=== PATIENT | female | born 1965 | race Caucasian/White ===

== ENCOUNTER 2018-05-09 13:19 | Emergency (ER) | payer OTHER ==
[~2018-05-09] VITALS: Ht 165.1 cm; Wt 74.4 kg
[2018-05-09 13:31] VITALS: Ht 165.1 cm; Wt 74.4 kg
[2018-05-09 16:41] LABS: BASOPHIL % 0.7 % (0-2); PLATELET COUNT 268 x10^3mcL (130-400); RED CELL DISTRIBUTION WIDTH 13.3 % (11.5-14.5)
[2018-05-09 16:57] LABS: CALCIUM 9.7 mg/dL (8.5-10.1); CARBON DIOXIDE 28.8 mmol/L (21-32); CHLORIDE SERUM 103 mmol/L (98-107); CREATININE SERUM 0.8 mg/dL (0.6-1.0); GFR1 > 60 mL/min; GLUCOSE SERUM 94 mg/dL (74-106); SODIUM SERUM 141 mmol/L (136-145)
[2018-05-09 17:01] LABS: ALBUMIN 3.8 g/dL (3.4-5.0); ALKALINE PHOSPHATASE 102 U/L (46-116); ALT/SGPT 30 U/L (14-59); AMYLASE 105 U/L (25-115); AST/SGOT 23 U/L (15-37); BILIRUBIN TOTAL 0.93 mg/dL (0.20-1.00); LIPASE 123 IU/L (73-393); TOTAL PROTEIN, SERUM 8.2 g/dL (6.4-8.2)
[2018-05-09 18:51] LABS: UA SPECIFIC GRAVITY <=1.005 (1.005-1.035); microscopic required? YES; urine erythrocyte 1+ (NEGATIVE)
[2018-05-09 19:25] VITALS: BP 113/65
== END 2018-05-09 19:25 | disposition home or self-care (01) ==
LOC: ED 13:19
PROVIDERS: Emergency Medicine
DX: R10.84 Generalized abdominal pain (principal); R14.0 Abdominal distension (gaseous); R11.0 Nausea
CPT/HCPCS: 36415; 83880

== ENCOUNTER 2019-10-01 17:05 | Emergency (ER) | payer OTHER ==
[~2019-10-01] VITALS: Ht 152.4 cm; Wt 74.8 kg
[2019-10-01 17:11] VITALS: Ht 152.4 cm; Wt 74.8 kg
[2019-10-01 17:43] LABS: BASOPHIL % 0.6 % (0-2); PLATELET COUNT 294 x10^3mcL (130-400); RED CELL DISTRIBUTION WIDTH 13.1 % (11.5-14.5)
[2019-10-01 17:54] LABS: CALCIUM 9.2 mg/dL (8.5-10.1); CHLORIDE SERUM 102 mmol/L (98-107); CREATININE SERUM 0.9 mg/dL (0.6-1.0); GFR1 > 60 mL/min; GLUCOSE SERUM 117 mg/dL (74-106); POTASSIUM SERUM 3.7 mmol/L (3.5-5.1); SODIUM SERUM 140 mmol/L (136-145)
[2019-10-01 17:59] LABS: ALBUMIN 3.8 g/dL (3.4-5.0); ALKALINE PHOSPHATASE 112 U/L (46-116); ALT/SGPT 23 U/L (14-59); AST/SGOT 16 U/L (15-37); BILIRUBIN TOTAL 0.6 mg/dL (0.20-1.00); LIPASE 314 IU/L (73-393)
[2019-10-01 18:00] LABS: TOTAL PROTEIN, SERUM 8.3 g/dL (6.4-8.2)
[2019-10-01 18:39] VITALS: BP 121/82
== END 2019-10-01 20:43 | disposition home or self-care (01) ==
LOC: ED 17:05
PROVIDERS: Emergency Medicine
DX: K29.70 Gastritis, unspecified, without bleeding (principal); N39.0 Urinary tract infection, site not specified
CPT/HCPCS: 36415; J1885

== ENCOUNTER 2019-11-13 19:25 | Emergency (ER) | payer OTHER ==
[~2019-11-13] VITALS: Ht 152.4 cm; Wt 74.8 kg
[2019-11-13 19:32] VITALS: Ht 152.4 cm; Wt 74.8 kg
[2019-11-13 21:31] VITALS: BP 120/56
== END 2019-11-13 21:31 | disposition home or self-care (01) ==
LOC: ED 19:25
DX: M75.32 Calcific tendinitis of left shoulder (principal)
CPT/HCPCS: J1885; Q0092